=== PATIENT | female | born 1930 | race Caucasian/White ===

== ENCOUNTER 2016-07-15 09:22 | Emergency (ER) | payer OTHER ==
[2016-07-15 09:51] VITALS: BMI 31.2
--- NOTE | 2016-07-15 10:01 | PDOC ---
History of Present Illness - General Chief Complaint: Rash Stated Complaint: SWELLING EYE Time Seen by Provider: 07/15/16 09:27 History Source: Patient Exam Limitations: Clinical Condition - History of Present Illness Initial Comments: 07/15/16 09:58 85 yo F with significant PMHx of dementia presents from [facility] with rash. Rash started one day prior and is painful. When she woke today she was seen by nurse and sent to ED. The rash is painful and located on right eyelid and right scalp. No other rash noted. She denies CP, IRVING, SOB, abd.pain, N /V. Timing/Duration: reports: getting worse Severity: Yes: mild Location: reports: scalp Respiratory Risk Factors: reports: no cause identified Associated Symptoms: reports: change in skin texture. denies: edema, fever, jaundice Past History - Travel Traveled outside of the country in the last 30 days: No Close contact w/someone who was outside of country & ill: No - Past Medical History Allergies/Adverse Reactions: Allergies Allergy/AdvReac Type Severity Reaction Status Date / Time Penicillins Allergy Verified 07/15/16 09:38 Home Medications: Ambulatory Orders Cholecalciferol (Vitamin D3) [D3-50] 50,000 unit PO MONTHLY 07/15/16 Cyanocobalamin [Vitamin B12 -] 1,000 mcg PO DAILY 07/15/16 Donepezil HCl 5 mg PO HS 07/15/16 Escitalopram Oxalate [Lexapro -] 15 mg PO DAILY 07/15/16 Multivitamin [Poly-Vitamin] 1 each PO DAILY 07/15/16 Prednisone [Deltasone] 60 mg PO DAILY #15 tablet 07/15/16 Valacyclovir HCl [Valtrex] 1,000 mg PO TID #21 tablet 07/15/16 Anemia: Yes Dementia: Yes Other medical history: Depression - Psycho/Social/Smoking Cessation Hx Suicidal Ideation: No Smoking History: Unknown if ever smoked Review of Systems - Review of Systems Able to Perform ROS?: Yes Is the patient limited Wolof proficient: Yes Constitutional: No: Chills, Fever HEENTM: No: Eye Pain, Blurred Vision, Ear Pain, Ear Discharge All Other Systems: Reviewed and Negative *Physical Exam - Vital Signs Last Vital Signs Temp Pulse Resp BP Pulse Ox 98.1 F 84 17 139/59 96 07/15/16 09:33 07/15/16 09:33 07/15/16 09:33 07/15/16 09:33 07/15/16 09:33 - Physical Exam General Appearance: No: Apparent Distress HEENT: positive: EOMI, AMANDA, Normal ENT Inspection, Normal Voice, Pharynx Normal , Lesions (vesicular lesion of right orbit involving eyelid and forehead/scalp) . negative: Photophobia Respiratory/Chest: positive: Lungs Clear, Normal Breath Sounds. negative: Respiratory Distress, Accessory Muscle Use Cardiovascular: positive: Regular Rhythm, Regular Rate, S1, S2. negative: Edema , JVD, Murmur Vascular Pulses: Dorsalis-Pedis (R): 2+, Doralis-Pedis (L): 2+ Gastrointestinal/Abdominal: positive: Normal Bowel Sounds, Flat, Soft. negative : Tenderness Musculoskeletal: positive: Normal Inspection. negative: CVA Tenderness Extremity: positive: Normal Inspection, Normal Range of Motion Integumentary: positive: Dry, Warm, Rash (Vesicular rash and crusted lesions right side of face in V1 distribution ) Neurologic: positive: reading teacher II-XII NML intact, Alert, Normal Mood/Affect, Disoriented (oriented only to person and place ) Procedures - Eye Procedure Progress: 07/15/16 10:30 slit lamp exam did not reveal ocular involvement. ED Treatment Course - LABORATORY CBC & Chemistry Diagram: 07/15/16 09:34 07/15/16 09:34 Medical Decision Making - Medical Decision Making 07/15/16 10:31 A:85 yo F with significant PMHx of dementia presents from [facility] presents with Shingles rash in V1 distribution w/o ocular involvement. P: * CBC, CMP to assess for kidney function and hematologic immune response. * Will dose Acyclovir based on kidney function. * She will need ophthalmic consult within 24hrs of discharge. 07/15/16 11:27 * Kidney function WNL no need to adjust Valtrex dosing. * Kidney function will need to me monitored will on medication. *DC/Admit/Observation/Transfer Diagnosis at time of Disposition: Shingles Qualifiers: Herpes zoster complications: without complications Qualified Code(s): B02.9 - Zoster without complications - Discharge Dispostion Disposition: RESIDENTIAL FACILITY Condition at time of disposition: Stable Admit: No - Referrals Referrals: Tamara Hanna MD [Primary Care Provider] - - Patient Instructions Printed Discharge Instructions: DI for Shingles Additional Instructions: Will need 7 day course of antivirals and 5 days prednisone as directed. Kidney function should be monitored will on antiviral meds. Will need to see opthalmologist in 24-48 hrs. Regular diet. Increase activity as tolerated. If pain worsens or rash does not improve please return to ER. MEDS/orders: Valtrex 1000mg PO TID for 7 days. Prednisone 60mg PO for 5 days. Opthalmology consult 24-48 hrs.
--- NOTE | 2016-07-15 10:26 | PDOC ---
Attending Attestation - Resident Resident Name: Jt Gallagher - ED Attending Attestation I have performed the following: I have examined & evaluated the patient, The case was reviewed & discussed with the resident, I agree w/resident's findings & plan, Exceptions are as noted - HPI HPI: 07/15/16 10:22 85-year-old [place] [facility] with shingles rash to right face and scalp. Mental status at baseline - Physicial Exam PE: 07/15/16 10:22 Afebrile. Alert, following instructions, baseline mild dementia but cooperative and pleasant Vesicular rash in the V1 distribution of cranial nerve V, upper eyelid involvement but no evidence of conjunctivitis or iritis, extraocular movements are intact without discomfort, gross visual acuity is intact. On slitlamp exam with fluorescin, there is no abnormal or concerning uptake excoriations to R hand, otherwise no evidence of disseminated zoster - Medical Decision Making 07/15/16 10:24 Patient seen and evaluated with the resident. I agree with the overall evaluation, assessment, and management with the following summary of visit: 85-year-old female with zoster in the V1 branch, no evidence of ophthalmic involvement at this time. Check basic labs Start antivirals and steroids Likely d/c back to [place] with Ophtho consultation
[2016-07-15 11:00] LABS: BASOPHIL 0.8 % (0-2.0); EOSINOPHIL 2.1 % (0-4.5); MCH 29.4 pg (25.7-33.7); MCHC 32.5 g/dl (32.0-36.0); MEAN CELL VOLUME 90.3 fl (80-96); MEAN PLT VOLUME 6.9 fl (7.5-11.1); NEUTROPHILS 65.1 % (42.8-82.8); PLATELET COUNT 416 K/MM3 (134-434); RDW 14.2 % (11.6-15.6); WHITE BLOOD COUNT 10.4 K/mm3 (4.0-10.0)
[2016-07-15 11:07] LABS: ALBUMIN 3.6 g/dl (3.4-5.0); ALK PHOS 109 U/L (45-117); ANION GAP 7 (8-16); BILIRUBIN,TOTAL 0.4 mg/dL (0.2-1.0); CO2 29 mmol/L (21-32); CREATININE 0.7 mg/dL (0.55-1.02); GLUCOSE,RANDOM 92 mg/dL (74-106); SGOT/AST 31 U/L (15-37); SGPT/ALT 39 U/L (12-78); TOT PROT 7.2 g/dl (6.4-8.2)
[2016-07-15 11:29] VITALS: BP 140/73; PULSE 69; TEMP 98.3
[2016-07-15] MEDS ORDERED: valACYclovir HCL 1000 MG TABLET PO ONE (11:44)
== END 2016-07-15 12:58 ==
LOC: JER 09:22
DX: B02.9 Zoster without complications (principal); F03.90 Unspecified dementia, unspecified severity, without behavioral disturbance, psychotic disturbance, mood disturbance, and anxiety; F41.9 Anxiety disorder, unspecified; D64.9 Anemia, unspecified
CPT/HCPCS: 36415; 80053; 85025; 99283-25